=== PATIENT | female | born 1960 | race Caucasian/White ===

== ENCOUNTER 2025-02-03 06:17 | Day surgery (SDC) | payer MEDICARE ==
[2025-02-01 11:41] LABS: Absolute Basophils 0.1 K/uL (0-0.5); Absolute Eosinophils 0.2 K/uL (0-0.5); Absolute Lymphocytes (CBC) 1.9 K/uL (0.7-4.9); Absolute Monocytes 0.4 K/uL (0.1-1.3); Absolute Neutrophil 3.2 K/uL (1.8-8.0); Eosinophils % 2.9 % (0-4.4); Hematocrit 40.6 % (36.0-45.0); Hemoglobin 13.8 g/dL (12.0-15.0); Lymphocytes % 32.9 % (15.3-44.8); MCH 28.7 pg (27.0-35.0); MCV 84.2 fL (80-100); MPV 7.8 fL (7.6-11.3); Neutrophils % 56.2 % (41.7-73.7); Platelets 217 thou/uL (152-406); RBC Red Blood Cell Count 4.82 M/uL (3.86-4.86); Red Cell Distribution Width 13.4 % (12.1-15.2)
[2025-02-01 11:54] LABS: Anion Gap 7.7 mEq/L (5.0-15.0); Potassium 3.7 mEq/L (3.5-5.1)
[2025-02-01 11:59] LABS: PT Prothrombin Time 12.1 SECONDS (10-13.0); PTT, Activated Partial Thromb 29.8 SECONDS (27.2-37.4); Protime INR 1.06
--- NOTE | 2025-02-01 12:16 | EKG ---
Test Date: 2025-02-01 Test Time: 11:25:19 Pediatric Dermatologist: TONYA MEASUREMENT RESULTS: Intervals: Rate: 65 HI: 118 QRSD: 102 QT: 396 QTc: 411 [place]: P: 53 HI: 118 QRS: -1 T: 29 INTERPRETIVE STATEMENTS: Normal sinus rhythm Incomplete right bundle branch block Borderline ECG No previous ECG available for comparison Electronically Signed On 02-01-25 12:16:01 CDT by Abdoul Padilla
--- NOTE | 2025-02-01 12:24 | RAD REPORT ---
Procedure: Chest Pa And Lat (2 Views) HISTORY: Preop for knee surgery COMPARISON: none FINDINGS: The lungs appear clear of acute infiltrate. Lungs are mildly hyperaerated. No significant pleural effusion noted. The heart is normal size. IMPRESSION: No acute abnormality is displayed.
[2025-02-03] MEDS ORDERED: FENTANYL CITR 100 MCG/2 ML ONE (06:58)
[2025-02-03] MEDS ORDERED: propofoL 200 MG/20 ML VIAL IV ONE (06:58)
[2025-02-03] MEDS ORDERED: MIDAZOLAM HCL 2 MG/2 ML INJ ONE (06:58)
[2025-02-03] MEDS ORDERED: KETOROLAC 30 MG/ML INJ ONE (06:58)
[2025-02-03] MEDS ORDERED: ONDANSETRON 4 MG/2 ML VIAL ONE (06:58)
[2025-02-03] MEDS ORDERED: LIDOCAINE 1% MPF 5 ML VIAL ONE (06:58)
[2025-02-03] MEDS: Ringers Lactate 1,000 ML IV ONE (07:22)
[2025-02-03] MEDS: CEFAZOLIN SODIUM 1 GM/VIAL ONE (08:15)
[2025-02-03] MEDS: BUPIVACAINE 0.25% PF 10 ML VIAL ONE (08:30)
--- NOTE | 2025-02-03 09:18 | P.BOP ---
Preoperative diagnosis: Left knee medial meniscus tear, left knee osteoarthritis Postoperative diagnosis: Same Primary procedure: Left knee arthroscopic partial medial meniscectomy Manager Pest: NONE,NONE Estimated blood loss: 5 cc Specimen: None Findings: See dictation Anesthesia: General Complications: None Implants: None Fluids & blood products: Per anesthesia record Transferred to: Recovery Room Condition: Good
--- NOTE | 2025-02-03 09:23 | P.OP ---
Preoperative diagnosis: Left knee medial meniscus tear, left knee osteoarthritis Postoperative diagnosis: Same Primary procedure: Left knee arthroscopic partial medial meniscectomy Anesthesia: General Estimated blood loss: 5 cc Specimen: None Findings: See dictation Operative Technique: Indication For Procedure: Kitty is a 64-year-old female who presented to my clinic with signs, symptoms, and MRI findings consistent with a left knee medial meniscus tear and underlying left knee osteoarthritis. Patient failed conservative treat measures including corticosteroid injection. Given her pain and mechanical symptoms we elected to proceed with left knee arthroscopic partial lateral meniscectomy. I discussed with the patient risks and benefits associated with operative and nonoperative treatment including continued pain from her osteoarthritis. She expressed understanding and elected to proceed with operative treatment. Description Of Procedure: After informed consent was obtained, the patient was identified in the preoperative holding area. The left lower extremity was marked. Patient was brought to the operating room transferred to the operative table in the supine fashion and placed under general anesthesia. The left lower extremity was then prepped and draped in usual sterile fashion. A time-out was initiated. The correct patient and procedure were performed and identified. The patient did receive preoperative prophylactic antibiotics. The left lower extremity was exsanguinated using an Esmarch and the tourniquet was inflated to 300 mmHg. Standard anterior medial and anterior lateral portals were created. The arthroscope was brought in via the anterolateral portal and a diagnostic arthroscopy was performed. 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 The arthroscope was then brought on the both medial and lateral gutters and there were no loose bodies found within the gutters. The arthroscope was first brought into the medial compartment where the patient was noted to have a complex tear of the medial meniscus body. A partial medial meniscectomy was performed using meniscal biters and arthroscopic guy to smooth meniscal borders. 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 The arthroscope was then brought into the intercondylar notch where the patient was noted to have an intact ACL and PCL which were stable to probe. The arthroscope was and brought of the lateral compartment where the patient was noted to have a stable lateral meniscus without significant tear and no significant chondromalacia changes of the lateral femoral condyle or lateral tibial plateau. Arthroscopic instruments were then removed without complication. Wounds were then irrigated thoroughly with normal saline. Portals were approximated using a 3-0 Monocryl. Sterile d ressings were applied. The patient was awakened and transferred to PACU in stable condition. Postoperative Plan: The patient will be weightbearing as tolerated on the left lower extremity. She will follow-up in clinic 1 week for wound check and dressing change. We will follow the post meniscectomy protocol 2 weeks postoperatively. Complications: None Implants: None Fluids & blood products: Per anesthesia record Transferred to: Recovery Room Condition: Good
[2025-02-03] MEDS: ONDANSETRON 4 MG/2 ML VIAL ONE (09:48)
[2025-02-03] MEDS: MEPERIDINE HCL 25 MG/ML SYR ONE (09:49)
[2025-02-03 11:07] VITALS: BP 130/69; TEMP 97.9; O2SAT 100
== END 2025-02-03 10:52 | disposition home or self-care (01) ==
LOC: OR 06:17
PROVIDERS: ATTEND Orthopaedic Surgery Sports Medicine
PROC: 0SBD4ZZ Excision of Left Knee Joint, Percutaneous Endoscopic Approach (ICD-10-PCS; principal; 2025-02-03 08:00)
DX: S83.242A Other tear of medial meniscus, current injury, left knee, initial encounter (principal); M17.12 Unilateral primary osteoarthritis, left knee
CPT/HCPCS: 36415; 71046; 80048; 85025; 85610; 85730; 93005; J0690; J2003; J2175; J2250; J2405; J2704; J3010; J7120